=== PATIENT | male | born 1985 | race American Indian/Alaskan Native ===

== ENCOUNTER 2017-12-07 21:55 | Emergency (ER) | payer MEDICARE ==
[2017-12-07] MEDS ORDERED: ASPIRIN PO ONE (22:19)
[2017-12-07 22:53] LABS: Basophils # (Auto) 0.1 K/mm3 (0.0-0.1); Basophils % (Auto) 0.7 % (0.0-1.8); Eosinophils # (Auto) 0.1 K/mm3 (0.0-0.4); Eosinophils % (Auto) 1.1 % (0.0-4.3); Hematocrit 47.6 % (35.5-45.6); Hemoglobin 15.3 gm/dl (11.8-15.2); Lymphocytes # (Auto) 3.9 K/mm3 (1.2-5.4); Lymphocytes % (Auto) 40.5 % (13.4-35.0); Mean Corpuscular HGB Conc 32 % (32-34); Mean Corpuscular Hemoglobin 26 pg (28-32); Mean Corpuscular Volume 80 fl (84-94); Monocytes # (Auto) 0.6 K/mm3 (0.0-0.8); Monocytes % (Auto) 6.7 % (0.0-7.3); Platelet Count 325 K/mm3 (140-440); Red Blood Count 5.92 M/mm3 (3.65-5.03); Red Cell Distribution Width 13.8 % (13.2-15.2)
[2017-12-07 23:07] LABS: BUN/Creatinine Ratio 11; Blood Urea Nitrogen 10 mg/dL (9-20); Calcium 8.5 mg/dL (8.4-10.2); Hemolysis Index 15
--- NOTE | 2017-12-07 23:08 | XRay Report ---
FINAL REPORT PROCEDURE: XR CHEST ROUTINE 2V TECHNIQUE: PA and lateral chest radiographs were obtained. CPT 41153 HISTORY: CP/SOB COMPARISON: No prior studies are available for comparison. FINDINGS: Heart: Normal. Mediastinum/Vessels: Normal. Lungs/Pleural space: Normal. Bony thorax: No acute osseous abnormality. Other: IMPRESSION: Normal examination.
--- NOTE | 2017-12-08 05:43 | Emergency Department Report ---
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 Patient has hypertension, which is controlled with diet, but no past history of coronary artery disease, but he does report that he has been significantly active at work, although not in repetitive activities, but he also reports significant stress at same time. He has not had any discomfort at time of examination. -: Gradual Onset: during rest Pain Location: left chest, right chest, other (base of neck, occasionally in left arm) Pain Radiation: none Severity: moderate Severity scale (0 -10): 4 Quality: aching, sharp Consistency: intermittent, now resolved Improves With: nothing Worsens With: movement Context: other (recent allergy and pollen symptoms, nasal congestion, sore throat) re: denies: nausea, vomting, dyspnea Other Symptoms: cough. denies: syncope, leg swelling, palpitations Treatments Prior to Arrival: none Aspirin use within the Past 7 Days: (0) No - Related Data On Oral Contraceptives: No Previous Rx's Medication Instructions Recorded Last Taken Type Azithromycin [Zithromax Z-DAYSI] 500 mg PO ONCE #6 tablet 05/18/13 Unknown Rx Lisinopril/Hydrochlorothiazide 1 each PO DAILY #30 tablet 05/18/13 Unknown Rx [Zestoretic 10-12.5 mg] Prednisone 20 mg PO QDAY #10 tablet 05/18/13 Unknown Rx ALBUTEROL Inhaler [ProAir HFA 2 puff IH QID PRN #1 unit 07/06/13 Unknown Rx Inhaler] Azithromycin [Zithromax] 500 mg PO QDAY #5 tablet 07/06/13 Unknown Rx Hycodan Susp 5 ml PO Q4H PRN #120 ml 07/06/13 Unknown Rx Docusate Sodium [Colace] 100 mg PO BID #60 capsule 08/25/14 Unknown Rx Starch 51%(Nf) [Anusol] 1 each [place] TID #30 supp.rect 08/25/14 Unknown Rx Ibuprofen [Motrin 600 MG tab] 600 mg PO Q8H PRN #40 tablet 03/21/15 Unknown Rx Penicillin Vk [Veetids TAB] 500 mg PO QID #40 tablet 03/21/15 Unknown Rx Acetaminophen/Codeine [Tylenol 1 tab PO Q6H PRN #20 tab 06/11/15 Unknown Rx /Codeine # 3 tab] Allergies Allergy/AdvReac Type Severity Reaction Status Date / Time No Known Allergies Allergy Verified 03/20/15 23:53 Heart Score - HEART Score History: Slightly suspicious EKG: Non-specific Age: < 45 Risk factors: 1-2 risk factors Troponin: < normal limit HEART Score: 2 ED Review of Systems ROS: Stated complaint: CHEST PAIN Other details as noted in HPI Constitutional: denies: chills, fever Eyes: denies: eye pain, eye discharge, vision change ENT: denies: ear pain, throat pain Respiratory: see HPI, cough. denies: shortness of breath, SOB with exertion, wheezing Cardiovascular: as per HPI, chest pain. denies: palpitations, edema, syncope, paroxysmal nocturnal dyspnea Endocrine: no symptoms reported Gastrointestinal: denies: abdominal pain, nausea, diarrhea Genitourinary: denies: urgency, dysuria Musculoskeletal: denies: back pain, joint swelling, arthralgia Skin: denies: rash, lesions Neurological: denies: headache, weakness, paresthesias Psychiatric: denies: anxiety, depression Hematological/Lymphatic: denies: easy bleeding, easy bruising ED Past Medical Hx - Past Medical History Previous Medical History?: Yes Hx Hypertension: Yes (not on meds) Hx CVA: No Hx Heart Attack/AMI: No Hx Congestive Heart Failure: No Additional medical history: SLEEP APNEA- CPAP - Surgical History Past Surgical History?: No - Social History Smoking Status: Current Every Day Smoker Substance Use Type: None - Medications Home Medications: Home Medications Medication Instructions Recorded Confirmed Last Taken Type Azithromycin [Zithromax Z-DAYSI] 500 mg PO ONCE #6 tablet 05/18/13 Unknown Rx Lisinopril/Hydrochlorothiazide 1 each PO DAILY #30 tablet 05/18/13 Unknown Rx [Zestoretic 10-12.5 mg] Prednisone 20 mg PO QDAY #10 tablet 05/18/13 Unknown Rx ALBUTEROL Inhaler [ProAir HFA 2 puff IH QID PRN #1 unit 07/06/13 Unknown Rx Inhaler] Azithromycin [Zithromax] 500 mg PO QDAY #5 tablet 07/06/13 Unknown Rx Hycodan Susp 5 ml PO Q4H PRN #120 ml 07/06/13 Unknown Rx Docusate Sodium [Colace] 100 mg PO BID #60 capsule 08/25/14 Unknown Rx Starch 51%(Nf) [Anusol] 1 each [place] TID #30 supp.rect 08/25/14 Unknown Rx Ibuprofen [Motrin 600 MG tab] 600 mg PO Q8H PRN #40 tablet 03/21/15 Unknown Rx Penicillin Vk [Veetids TAB] 500 mg PO QID #40 tablet 03/21/15 Unknown Rx Acetaminophen/Codeine [Tylenol 1 tab PO Q6H PRN #20 tab 06/11/15 Unknown Rx /Codeine # 3 tab] ED Physical Exam - General Limitations: No Limitations General appearance: alert, in no apparent distress - Head Head exam: Present: atraumatic, normocephalic - Eye Eye exam: Present: normal appearance - ENT ENT exam: Present: mucous membranes moist - Neck Neck exam: Present: normal inspection - Respiratory Respiratory exam: Present: normal lung sounds bilaterally, chest wall tenderness. Absent: respiratory distress, wheezes, rales, rhonchi, accessory muscle use - Cardiovascular Cardiovascular Exam: Present: regular rate, normal rhythm, normal heart sounds. Absent: systolic murmur, diastolic murmur, rubs, gallop - GI/Abdominal GI/Abdominal exam: Present: soft, normal bowel sounds - Rectal Rectal exam: Present: deferred - Extremities Exam Extremities exam: Present: normal inspection - Back Exam Back exam: Present: normal inspection - Neurological Exam Neurological exam: Present: alert, oriented X3 - Psychiatric Psychiatric exam: Present: normal affect, normal mood - Skin Skin exam: Present: warm, dry, intact, normal color. Absent: rash ED Course Vital Signs 12/07/17 12/08/17 12/08/17 22:11 00:08 00:14 Temperature 99.0 F 98.1 F Pulse Rate 64 62 57 L Respiratory 18 18 15 Rate Blood Pressure 142/81 148/81 Blood Pressure 148/81 [Left] O2 Sat by Pulse 99 100 100 Oximetry 12/08/17 12/08/17 12/08/17 01:00 02:00 03:00 Temperature Pulse Rate 57 L 54 L 50 L Respiratory 15 23 12 Rate Blood Pressure 136/82 121/77 129/79 Blood Pressure [Left] O2 Sat by Pulse 99 98 99 Oximetry 12/08/17 05:55 Temperature Pulse Rate 61 Respiratory 14 Rate Blood Pressure Blood Pressure 118/76 [Left] O2 Sat by Pulse 100 Oximetry - Reevaluation(s) Reevaluation #1: 12/08/17 05:52 Blood pressure stable at initial examination, at 121/72, heart rate is 80 and stable. ERIK score - Erik Score Age > 65: (0) No Aspirin use within the Past 7 Days: (0) No 3 or more CAD Risk Factors: (0) No 2 or more Angina events in past 24 hrs: (0) No Known CAD with more than 50% Stenosis: (0) No Elevated Cardiac Markers: (0) No ST Deviation Greater than 0.5mm: (0) No ERIK Score: 0 ED Medical Decision Making - Lab Data Result diagrams: 12/07/17 22:22 12/07/17 22:22 - EKG Data -: EKG Interpreted by Nm EKG shows normal: sinus rhythm, ST-T waves (nonspecific anterior septal ST abnormalities, less than 1 mm) Rate: bradycardia - EKG Data When compared to previous EKG there are: previous EKG unavailable - Radiology Data Radiology results: report reviewed Normal chest x-ray - Medical Decision Making Patient is clinically stable, has symptoms more suggestive of noncardiac and musculoskeletal discomfort, rather than a coronary etiology. He is in stable in the emergency department, is comfortable at time of examination, vital signs are stable, laboratory evaluation is negative, and EKG is unremarkable. Patient is clinically stable for discharge, reassured that findings were not significantly worrisome for acute coronary disease. - Differential Diagnosis chest wall pain, chronic muscle tension, costochondritis, acute coronary sy Critical Care Time: No Critical care attestation.: If time is entered above; I have spent that time in minutes in the direct care of this critically ill patient, excluding procedure time. ED Disposition Clinical Impression: Acute chest wall pain Disposition: - TO HOME OR SELFCARE Is pt being admited?: No Does the pt Need Aspirin: No Condition: Good Instructions: Costochondritis (ED) Additional Instructions: Warm heating pad will help relieve muscles, and you may use gentle stretching exercises to return your muscles to become more limber. Referrals: FRANCINE TAMAYO MD [Primary Care Provider] - 3-5 Days Forms: Accompanied Note, Work/School Release Form(ED) Time of Disposition: 05:45
[2017-12-08 05:56] VITALS: BP 118/76
== END 2017-12-08 05:56 | disposition home or self-care (01) ==
LOC: ED 21:55
DX: R07.89 Other chest pain (principal); R05 Cough; I10 Essential (primary) hypertension; F17.200 Nicotine dependence, unspecified, uncomplicated
CPT/HCPCS: 36415; 71046; 80048; 84484; 85025; 93005; 93010; 99284

== ENCOUNTER 2018-05-19 12:13 | Emergency (ER) | payer SELFPAY ==
[2018-05-19 12:31] VITALS: BP 158/103
[2018-05-19] MEDS ORDERED: NACL 0.9% 1000 ML 1,000 ML IV ONE (12:42)
[2018-05-19] MEDS ORDERED: TORADOL IV ONE (12:42)
--- NOTE | 2018-05-19 12:50 | Emergency Department Report ---
ED Abdominal Pain HPI - General Chief Complaint: Abdominal Pain Stated Complaint: ABD PAIN/FACE TWITCHING Time Seen by Provider: 05/19/18 12:38 Source: patient Mode of arrival: Ambulatory Limitations: No Limitations - History of Present Illness Initial Comments: This is a 32-year-old male nontoxic, well nourished in appearance, no acute signs of distress presents to the ED with c/o of intermittent right lower abdominal x2 weeks. Patient stated it is worse during a bowel movement and also causes him to have an "aching" sensation in his right testicular area. Patient stated the testiular aching only occurs during a bowel movement. Patient otherwise currently in the ER denies any testicular pain or swelling. Denies any penile ulcers or lesions or discharge. Patient denies any nausea or vomiting. Patient describes abdominal pain as cramping and aching with level of 3/10. Patient denies chest pain, short of breath, fever, chills, headache, stiff neck, numbness or tingling. Patient denies any diarrhea. Patient stated that he has constipation issues. Patient denies any recent travels. Patient denies any allergies or significant past medical history. MD Complaint: abdominal pain -: week(s) (2) Location: RLQ Radiation: none Migration to: no migration Severity: mild Severity scale (0 -10): 3 Quality: cramping Consistency: intermittent Improves With: nothing Worsens With: bowel movement Associated Symptoms: constipation. denies: nausea, vomiting, diarrhea, fever, chills, dysuria, hematemesis, hematochezia, melena, hematuria, anorexia, syncope - Related Data Previous Rx's Medication Instructions Recorded Last Taken Type Azithromycin [Zithromax Z-DAYSI] 500 mg PO ONCE #6 tablet 05/18/13 Unknown Rx Lisinopril/Hydrochlorothiazide 1 each PO DAILY #30 tablet 05/18/13 Unknown Rx [Zestoretic 10-12.5 mg] Prednisone 20 mg PO QDAY #10 tablet 05/18/13 Unknown Rx ALBUTEROL Inhaler (OR & NICU) 2 puff IH QID PRN #1 unit 07/06/13 Unknown Rx [ProAir HFA Inhaler] Azithromycin [Zithromax] 500 mg PO QDAY #5 tablet 07/06/13 Unknown Rx Hycodan Susp 5 ml PO Q4H PRN #120 ml 07/06/13 Unknown Rx Docusate Sodium [Colace] 100 mg PO BID #60 capsule 08/25/14 Unknown Rx Starch 51%(Nf) [Anusol] 1 each [place] TID #30 supp.rect 08/25/14 Unknown Rx Ibuprofen [Motrin 600 MG tab] 600 mg PO Q8H PRN #40 tablet 03/21/15 Unknown Rx Penicillin Vk [Veetids TAB] 500 mg PO QID #40 tablet 03/21/15 Unknown Rx Acetaminophen/Codeine [Tylenol 1 tab PO Q6H PRN #20 tab 06/11/15 Unknown Rx /Codeine # 3 tab] Ibuprofen [Motrin] 600 mg PO Q8H PRN #12 tablet 05/19/18 Unknown Rx Allergies Allergy/AdvReac Type Severity Reaction Status Date / Time No Known Allergies Allergy Verified 03/20/15 23:53 ED Review of Systems ROS: Stated complaint: ABD PAIN/FACE TWITCHING Other details as noted in HPI Constitutional: denies: chills, fever Eyes: denies: eye pain, eye discharge, vision change ENT: denies: ear pain, throat pain Respiratory: denies: cough, shortness of breath, wheezing Cardiovascular: denies: chest pain, palpitations Endocrine: no symptoms reported Gastrointestinal: abdominal pain. denies: nausea, diarrhea Genitourinary: denies: urgency, dysuria Musculoskeletal: denies: back pain, joint swelling, arthralgia Skin: denies: rash, lesions Neurological: denies: headache, weakness, paresthesias Psychiatric: denies: anxiety, depression Hematological/Lymphatic: denies: easy bleeding, easy bruising ED Past Medical Hx - Past Medical History Hx Hypertension: No (not on meds) Hx CVA: No Hx Heart Attack/AMI: No Hx Congestive Heart Failure: No Additional medical history: SLEEP APNEA- CPAP - Surgical History Past Surgical History?: No - Social History Smoking Status: Current Every Day Smoker Substance Use Type: None - Medications Home Medications: Home Medications Medication Instructions Recorded Confirmed Last Taken Type Azithromycin [Zithromax Z-DAYSI] 500 mg PO ONCE #6 tablet 05/18/13 Unknown Rx Lisinopril/Hydrochlorothiazide 1 each PO DAILY #30 tablet 05/18/13 Unknown Rx [Zestoretic 10-12.5 mg] Prednisone 20 mg PO QDAY #10 tablet 05/18/13 Unknown Rx ALBUTEROL Inhaler (OR & NICU) 2 puff IH QID PRN #1 unit 07/06/13 Unknown Rx [ProAir HFA Inhaler] Azithromycin [Zithromax] 500 mg PO QDAY #5 tablet 07/06/13 Unknown Rx Hycodan Susp 5 ml PO Q4H PRN #120 ml 07/06/13 Unknown Rx Docusate Sodium [Colace] 100 mg PO BID #60 capsule 08/25/14 Unknown Rx Starch 51%(Nf) [Anusol] 1 each [place] TID #30 supp.rect 08/25/14 Unknown Rx Ibuprofen [Motrin 600 MG tab] 600 mg PO Q8H PRN #40 tablet 03/21/15 Unknown Rx Penicillin Vk [Veetids TAB] 500 mg PO QID #40 tablet 03/21/15 Unknown Rx Acetaminophen/Codeine [Tylenol 1 tab PO Q6H PRN #20 tab 06/11/15 Unknown Rx /Codeine # 3 tab] Ibuprofen [Motrin] 600 mg PO Q8H PRN #12 tablet 05/19/18 Unknown Rx ED Physical Exam - General Limitations: No Limitations General appearance: alert, in no apparent distress - Head Head exam: Present: atraumatic, normocephalic - Eye Eye exam: Present: normal appearance Pupils: Present: normal accommodation - ENT ENT exam: Present: normal exam, mucous membranes moist - Neck Neck exam: Present: normal inspection, full ROM - Respiratory Respiratory exam: Present: normal lung sounds bilaterally. Absent: respiratory distress, wheezes, rales, rhonchi, stridor, chest wall tenderness, accessory muscle use, decreased breath sounds, prolonged expiratory - Cardiovascular Cardiovascular Exam: Present: regular rate, normal rhythm, normal heart sounds. Absent: bradycardia, tachycardia, irregular rhythm, systolic murmur, diastolic murmur, rubs, gallop - GI/Abdominal GI/Abdominal exam: Present: soft, tenderness (RLQ), normal bowel sounds. Absent : distended, guarding, rebound, rigid, diminished bowel sounds, hyperactive bowel sounds, hypoactive bowel sounds, mass, bruit - Expanded GI/Abdominal Exam Expanded GI/Abdominal exam: Absent: psoas sign, Lechuga's sign, Rovsing's sign, tenderness at Mcburney's Point, ascites - Rectal Rectal exam: Present: deferred - exam: Present: normal inspection. Absent: testicular tenderness, urethral discharge, scrotal swelling, vertical testicular lie, circumcision - Extremities Exam Extremities exam: Present: normal inspection, full ROM, normal capillary refill. Absent: tenderness - Back Exam Back exam: Present: normal inspection, full ROM - Neurological Exam Neurological exam: Present: alert, oriented X3, normal gait - Psychiatric Psychiatric exam: Present: normal affect, normal mood - Skin Skin exam: Present: warm, dry, intact, normal color. Absent: rash ED Course Vital Signs 05/19/18 12:27 Temperature 98.6 F Pulse Rate 68 Respiratory 16 Rate Blood Pressure 158/103 O2 Sat by Pulse 100 Oximetry - Reevaluation(s) Reevaluation #1: 05/19/18 12:59 Patient is speaking in full sentences with no signs of distress noted. ED Medical Decision Making - Lab Data Result diagrams: 05/19/18 12:44 05/19/18 12:44 - Medical Decision Making This is a 32-year-old male that presents with abdominal pain. Patient is stable and was examined by me. There is slight abdominal tenderness to RLQ. Negative signs of symptoms of appendicitis. Labs obtained. UA obtained. CT with contrast of abdomen obtained and dictated by the radiologist. Patient is notified of the report with no questions noted by the patient. Vital signs are stable prior to discharge. Patient received 1L normal saline and Toradol in the ED which patient stated symptoms has resolved and subsided. no n/v noted. Patient was also instructed to Follow-up with a primary care doctor in 3-5 days or if symptoms worsen and continue return to emergency room as soon as possible. At time of discharge, the patient does not seem toxic or ill in appearance. No acute signs of distress noted. Patient agrees to discharge treatment plan of care. No further questions noted by the patient. Critical care attestation.: If time is entered above; I have spent that time in minutes in the direct care of this critically ill patient, excluding procedure time. ED Disposition Clinical Impression: Abdominal pain Qualifiers: Abdominal location: right lower quadrant Qualified Code(s): R10.31 - Right lower quadrant pain Disposition: DC-01 TO HOME OR SELFCARE Is pt being admited?: No Does the pt Need Aspirin: No Condition: Stable Instructions: Acute Abdominal Pain (ED) Additional Instructions: Follow-up with a primary care/merchandiser doctor in 3-5 days or if symptoms worsen and continue return to emergency room as soon as possible. Prescriptions: Ibuprofen [Motrin] 600 mg PO Q8H PRN #12 tablet PRN Reason: Pain Referrals: PRIMARY CAREMD [Primary Care Provider] - 3-5 Days PARISH TYLER MD [Staff Physician] - 3-5 Days [facility] [Provider Group] - 3-5 Days [facility] [Outside] - 3-5 Days Forms: Work/School Release Form(ED)
[2018-05-19 13:05] LABS: Basophils # (Auto) 0.1 K/mm3 (0.0-0.1); Basophils % (Auto) 1.2 % (0.0-1.8); Eosinophils # (Auto) 0.1 K/mm3 (0.0-0.4); Eosinophils % (Auto) 1.2 % (0.0-4.3); Hemoglobin 15.7 gm/dl (11.8-15.2); Lymphocytes # (Auto) 2.6 K/mm3 (1.2-5.4); Lymphocytes % (Auto) 28.7 % (13.4-35.0); Mean Corpuscular HGB Conc 32 % (32-34); Mean Corpuscular Hemoglobin 26 pg (28-32); Mean Corpuscular Volume 81 fl (84-94); Monocytes # (Auto) 0.7 K/mm3 (0.0-0.8); Monocytes % (Auto) 8.1 % (0.0-7.3); Platelet Count 329 K/mm3 (140-440); Red Blood Count 6.03 M/mm3 (3.65-5.03); Red Cell Distribution Width 14.3 % (13.2-15.2)
[2018-05-19 13:17] LABS: Alanine Aminotransferase 13 units/L (7-56); Albumin 4.5 g/dL (3.9-5); BUN/Creatinine Ratio 9; Blood Urea Nitrogen 9 mg/dL (9-20); Calcium 9.2 mg/dL (8.4-10.2); Hemolysis Index 36; Lipase 30 units/L (13-60)
[2018-05-19 14:13] LABS: Bilirubin,Urine NEG (Negative); Blood,Urine NEG (Negative); Color,Urine Yellow (Yellow); Mucus,Urine FEW /HPF; Protein,Urine <15 mg/dL mg/dL (Negative); Urobilinogen,Urine < 2.0 mg/dL (<2.0)
--- NOTE | 2018-05-19 14:27 | Cat Scan Report ---
FINAL REPORT EXAM: CT ABDOMEN PELVIS W CON HISTORY: abd pain TECHNIQUE: CT abdomen and pelvis performed. Images extend from diaphragm to pubic symphysis. 100 cc Omnipaque 300 IV was administered. No oral contrast was administered. Coronal and sagittal reformatted images were obtained. PRIORS: None. FINDINGS: The visualized aspects of the lung bases are clear. The visualized liver, spleen, pancreas, adrenal glands and kidneys demonstrate no significant abnormalities. There is no abdominal aortic aneurysm. There is no evidence of intestinal obstruction. The appendix is normal. There are no abnormal fluid collections seen. There is no free intraperitoneal air. The bladder is unremarkable. There is no abnormal pelvic mass or fluid collections seen. IMPRESSION: There is no acute abnormality identified.
[2018-05-19 14:29] LABS: WBC,Urine < 1.0 /HPF (0.0-6.0)
== END 2018-05-19 15:00 | disposition home or self-care (01) ==
LOC: ED 12:13
DX: R10.31 Right lower quadrant pain (principal); K59.00 Constipation, unspecified
CPT/HCPCS: 36415; 74177; 80053; 81001; 83690; 85025; 96374; 99284; J1885; J7030; Q9967

== ENCOUNTER 2018-06-12 20:28 | Emergency (ER) | payer SELFPAY ==
[2018-06-12] MEDS ORDERED: ASPIRIN PO ONE (21:30)
[2018-06-12 22:17] LABS: Basophils # (Auto) 0.1 K/mm3 (0.0-0.1); Basophils % (Auto) 0.8 % (0.0-1.8); Eosinophils # (Auto) 0.1 K/mm3 (0.0-0.4); Eosinophils % (Auto) 0.9 % (0.0-4.3); Hematocrit 47.3 % (35.5-45.6); Hemoglobin 15.7 gm/dl (11.8-15.2); Lymphocytes # (Auto) 2.9 K/mm3 (1.2-5.4); Lymphocytes % (Auto) 27.1 % (13.4-35.0); Mean Corpuscular HGB Conc 33 % (32-34); Mean Corpuscular Hemoglobin 27 pg (28-32); Mean Corpuscular Volume 81 fl (84-94); Monocytes # (Auto) 0.7 K/mm3 (0.0-0.8); Monocytes % (Auto) 6.4 % (0.0-7.3); Platelet Count 362 K/mm3 (140-440); Red Blood Count 5.83 M/mm3 (3.65-5.03); Red Cell Distribution Width 14.2 % (13.2-15.2)
[2018-06-12 22:40] LABS: BUN/Creatinine Ratio 9; Blood Urea Nitrogen 8 mg/dL (9-20); Calcium 9.5 mg/dL (8.4-10.2); Hemolysis Index 8
--- NOTE | 2018-06-13 01:45 | Emergency Department Report ---
ED Chest Pain HPI - General Chief Complaint: Chest Pain Stated Complaint: CP Time Seen by Provider: 06/13/18 01:44 Source: patient Mode of arrival: Ambulatory Limitations: No Limitations - History of Present Illness Initial Comments: Patient complains of chest pain intermittently. MD Complaint: chest pain -: Sudden Onset: during rest Pain Location: substernal Pain Radiation: none Severity: mild Severity scale (0 -10): 2 Quality: aching Consistency: intermittent Improves With: nothing Worsens With: nothing Treatments Prior to Arrival: none Aspirin use within the Past 7 Days: (0) No - Related Data Previous Rx's Medication Instructions Recorded Last Taken Type Azithromycin [Zithromax Z-DAYSI] 500 mg PO ONCE #6 tablet 05/18/13 Unknown Rx Lisinopril/Hydrochlorothiazide 1 each PO DAILY #30 tablet 05/18/13 Unknown Rx [Zestoretic 10-12.5 mg] Prednisone 20 mg PO QDAY #10 tablet 05/18/13 Unknown Rx ALBUTEROL Inhaler (OR & NICU) 2 puff IH QID PRN #1 unit 07/06/13 Unknown Rx [ProAir HFA Inhaler] Azithromycin [Zithromax] 500 mg PO QDAY #5 tablet 07/06/13 Unknown Rx Hycodan Susp 5 ml PO Q4H PRN #120 ml 07/06/13 Unknown Rx Docusate Sodium [Colace] 100 mg PO BID #60 capsule 08/25/14 Unknown Rx Starch 51%(Nf) [Anusol] 1 each NV TID #30 supp.rect 08/25/14 Unknown Rx Ibuprofen [Motrin 600 MG tab] 600 mg PO Q8H PRN #40 tablet 03/21/15 Unknown Rx Penicillin Vk [Veetids TAB] 500 mg PO QID #40 tablet 03/21/15 Unknown Rx Acetaminophen/Codeine [Tylenol 1 tab PO Q6H PRN #20 tab 06/11/15 Unknown Rx /Codeine # 3 tab] Ibuprofen [Motrin] 600 mg PO Q8H PRN #12 tablet 05/19/18 Unknown Rx Ibuprofen 800 mg PO TID PRN #20 tablet 06/13/18 Unknown Rx Allergies Allergy/AdvReac Type Severity Reaction Status Date / Time No Known Allergies Allergy Verified 03/20/15 23:53 Heart Score - HEART Score History: Slightly suspicious EKG: Normal Age: < 45 Risk factors: No known risk factors Troponin: < normal limit HEART Score: 0 - Critical Actions Critical Actions: 0-3 pts:0.9-1.7%risk of adverse cardiac event.Candidate for discharge ED Review of Systems ROS: Stated complaint: CP Other details as noted in HPI Comment: All other systems reviewed and negative Constitutional: denies: chills, fever Eyes: denies: eye pain, eye discharge, vision change ENT: denies: ear pain, throat pain Respiratory: denies: cough, shortness of breath, wheezing Cardiovascular: chest pain. denies: palpitations Endocrine: no symptoms reported Gastrointestinal: denies: abdominal pain, nausea, diarrhea Genitourinary: denies: urgency, dysuria Musculoskeletal: denies: back pain, joint swelling, arthralgia Skin: denies: rash, lesions Neurological: denies: headache, weakness, paresthesias Psychiatric: denies: anxiety, depression Hematological/Lymphatic: denies: easy bleeding, easy bruising ED Past Medical Hx - Past Medical History Previous Medical History?: Yes Hx Hypertension: No (not on meds) Hx CVA: No Hx Heart Attack/AMI: No Hx Congestive Heart Failure: No Additional medical history: SLEEP [id number], "it got ruined" - Surgical History Past Surgical History?: No - Social History Smoking Status: Current Every Day Smoker Substance Use Type: None - Medications Home Medications: Home Medications Medication Instructions Recorded Confirmed Last Taken Type Azithromycin [Zithromax Z-DAYSI] 500 mg PO ONCE #6 tablet 05/18/13 Unknown Rx Lisinopril/Hydrochlorothiazide 1 each PO DAILY #30 tablet 05/18/13 Unknown Rx [Zestoretic 10-12.5 mg] Prednisone 20 mg PO QDAY #10 tablet 05/18/13 Unknown Rx ALBUTEROL Inhaler (OR & NICU) 2 puff IH QID PRN #1 unit 07/06/13 Unknown Rx [ProAir HFA Inhaler] Azithromycin [Zithromax] 500 mg PO QDAY #5 tablet 07/06/13 Unknown Rx Hycodan Susp 5 ml PO Q4H PRN #120 ml 07/06/13 Unknown Rx Docusate Sodium [Colace] 100 mg PO BID #60 capsule 08/25/14 Unknown Rx Starch 51%(Nf) [Anusol] 1 each NV TID #30 supp.rect 08/25/14 Unknown Rx Ibuprofen [Motrin 600 MG tab] 600 mg PO Q8H PRN #40 tablet 03/21/15 Unknown Rx Penicillin Vk [Veetids TAB] 500 mg PO QID #40 tablet 03/21/15 Unknown Rx Acetaminophen/Codeine [Tylenol 1 tab PO Q6H PRN #20 tab 06/11/15 Unknown Rx /Codeine # 3 tab] Ibuprofen [Motrin] 600 mg PO Q8H PRN #12 tablet 05/19/18 Unknown Rx Ibuprofen 800 mg PO TID PRN #20 tablet 06/13/18 Unknown Rx ED Physical Exam - General Limitations: No Limitations General appearance: alert, in no apparent distress - Head Head exam: Present: atraumatic, normocephalic - Eye Eye exam: Present: normal appearance - ENT ENT exam: Present: mucous membranes moist - Neck Neck exam: Present: normal inspection - Respiratory Respiratory exam: Present: normal lung sounds bilaterally. Absent: respiratory distress - Cardiovascular Cardiovascular Exam: Present: regular rate, normal rhythm, other (anterior chest wall tenderness to palpation.). Absent: systolic murmur, diastolic murmur , rubs, gallop - GI/Abdominal GI/Abdominal exam: Present: soft, normal bowel sounds - Rectal Rectal exam: Present: deferred - Extremities Exam Extremities exam: Present: normal inspection - Back Exam Back exam: Present: normal inspection - Neurological Exam Neurological exam: Present: alert, oriented X3 - Psychiatric Psychiatric exam: Present: normal affect, normal mood - Skin Skin exam: Present: warm, dry, intact, normal color. Absent: rash ED Course Vital Signs 06/12/18 06/12/18 06/13/18 20:48 21:21 01:14 Temperature 99.3 F 99.3 F 98.5 F Pulse Rate 78 77 52 L Respiratory 18 18 20 Rate Blood Pressure 145/82 145/82 129/81 O2 Sat by Pulse 99 99 97 Oximetry 06/13/18 06/13/18 06/13/18 02:09 02:31 03:00 Temperature Pulse Rate 119 H 46 L 60 Respiratory 21 14 Rate Blood Pressure 121/57 121/57 O2 Sat by Pulse 96 99 Oximetry ERIK score - Erik Score Age > 65: (0) No Aspirin use within the Past 7 Days: (0) No 3 or more CAD Risk Factors: (0) No 2 or more Angina events in past 24 hrs: (0) No Known CAD with more than 50% Stenosis: (0) No Elevated Cardiac Markers: (0) No ST Deviation Greater than 0.5mm: (0) No ERIK Score: 0 ED Medical Decision Making - Lab Data Result diagrams: 06/12/18 21:41 06/12/18 21:41 - EKG Data -: EKG Interpreted by Me EKG shows normal: sinus rhythm Rate: normal (63) - EKG Data When compared to previous EKG there are: previous EKG unavailable Interpretation: normal EKG 06/13/18 02:21 No STEMI. - Radiology Data Radiology results: report reviewed, image reviewed Chest x-rays negative. - Medical Decision Making Atypical chest pain. Critical care attestation.: If time is entered above; I have spent that time in minutes in the direct care of this critically ill patient, excluding procedure time. ED Disposition Clinical Impression: Atypical chest pain, Acute costochondritis Disposition: TO HOME OR SELFCARE Is pt being admited?: No Does the pt Need Aspirin: No Condition: Stable Instructions: Chest Pain (ED), Costochondritis (ED) Additional Instructions: Please follow up with her primary doctor or Dr Adrian tomorrow morning. Return to the emergency room if your condition worsens. Prescriptions: Ibuprofen 800 mg PO TID PRN #20 tablet PRN Reason: Pain, Moderate (4-6) Referrals: PRIMARY CARE, [Primary Care Provider] - 3-5 Days Time of Disposition: 03:39
[2018-06-13] MEDS ORDERED: NACL 0.9% 1000 ML 1,000 ML IV ONE (02:14)
--- NOTE | 2018-06-13 02:53 | XRay Report ---
FINAL REPORT EXAM: XR CHEST 1V AP HISTORY: Chest pain TECHNIQUE: A portable view of the chest was obtained and compared to the study of 12/07/2017. FINDINGS: The heart size and vascularity appear normal. The lungs are clear. Pleural fluid is not seen. The bones and soft tissues appear normal. IMPRESSION: Normal chest
[2018-06-13 04:01] VITALS: BP 153/93
== END 2018-06-13 04:02 | disposition home or self-care (01) ==
LOC: ED 20:28
DX: R07.89 Other chest pain (principal); M94.0 Chondrocostal junction syndrome [Tietze]; F17.200 Nicotine dependence, unspecified, uncomplicated
CPT/HCPCS: 36415; 71045; 80048; 83880; 84484; 85025; 85379; 93005; 93010

== ENCOUNTER 2021-12-17 19:14 | Emergency (ER) | payer SELFPAY ==
--- NOTE | 2021-12-17 22:12 | Emergency Department Report ---
ED Neck Pain/Injury HPI - General Chief Complaint: Extremity Problem,Nontraumatic Stated Complaint: NECK/RT ARM PAIN Time Seen by Provider: 12/17/21 21:36 Mode of arrival: Ambulatory Limitations: No Limitations - History of Present Illness Initial Comments: 5-year-old male Aletha emerged department complaining of pain and stiffness to the right neck back and shoulder region of unknown etiology states that he woke up with the pain 1 morning after sleeping awkwardly on the side that has yet to resolve. No numbness or tingling, no fever, chills, sweats. No headache, no chest pain, no hemoptysis, no hematemesis, no hematochezia MD Complaint: neck pain -: Gradual Place: home Radiation: right lateral Severity: mild, moderate Quality: dull, aching Consistency: constant Improves With: none Worsens With: none Associated Symptoms: none. denies: numbness, tingling, vertigo, difficulty walking, swollen glands, nausea, vomiting - Related Data Previous Rx's Medication Instructions Recorded Last Taken Type Azithromycin [Zithromax Z-DAYSI] 500 mg PO ONCE #6 tablet 05/18/13 Unknown Rx Lisinopril/Hydrochlorothiazide 1 each PO DAILY #30 tablet 05/18/13 Unknown Rx [Zestoretic 10-12.5 mg] Prednisone 20 mg PO QDAY #10 tablet 05/18/13 Unknown Rx Albuterol Mdi (or & Nicu Only) 2 puff IH QID PRN #1 unit 07/06/13 Unknown Rx [ProAir HFA Inhaler] Azithromycin [Zithromax] 500 mg PO QDAY #5 tablet 07/06/13 Unknown Rx Hycodan Susp 5 ml PO Q4H PRN #120 ml 07/06/13 Unknown Rx Docusate Sodium [Colace] 100 mg PO BID #60 capsule 08/25/14 Unknown Rx Starch 51%(Nf) [Anusol] 1 each [place] TID #30 supp.rect 08/25/14 Unknown Rx Ibuprofen [Motrin 600 MG tab] 600 mg PO Q8H PRN #40 tablet 03/21/15 Unknown Rx Penicillin Vk [Veetids TAB] 500 mg PO QID #40 tablet 03/21/15 Unknown Rx Acetaminophen/Codeine [Tylenol 1 tab PO Q6H PRN #20 tab 06/11/15 Unknown Rx /Codeine # 3 tab] Ibuprofen [Motrin] 600 mg PO Q8H PRN #12 tablet 05/19/18 Unknown Rx Ibuprofen 800 mg PO TID PRN #20 tablet 06/13/18 Unknown Rx Ketorolac [Toradol] 10 mg PO Q6H PRN #15 tablet 12/17/21 Unknown Rx methOCARBAMOL [Robaxin TAB] 750 mg PO Q8H PRN #14 tablet 12/17/21 Unknown Rx Allergies Allergy/AdvReac Type Severity Reaction Status Date / Time No Known Allergies Allergy Verified 12/17/21 20:18 ED Review of Systems ROS: Stated complaint: NECK/RT ARM PAIN Other details as noted in HPI Comment: All other systems reviewed and negative ED Past Medical Hx - Past Medical History Previous Medical History?: Yes Hx Hypertension: (not on meds) Hx CVA: No Hx Heart Attack/AMI: No Hx Congestive Heart Failure: No Additional medical history: SLEEP [id number], "it got ruined" - Surgical History Past Surgical History?: No - Social History Smoking Status: Never Smoker Substance Use Type: None - Medications Home Medications: Home Medications Medication Instructions Recorded Confirmed Last Taken Type Azithromycin [Zithromax Z-DAYSI] 500 mg PO ONCE #6 tablet 05/18/13 Unknown Rx Lisinopril/Hydrochlorothiazide 1 each PO DAILY #30 tablet 05/18/13 Unknown Rx [Zestoretic 10-12.5 mg] Prednisone 20 mg PO QDAY #10 tablet 05/18/13 Unknown Rx Albuterol Mdi (or & Nicu Only) 2 puff IH QID PRN #1 unit 07/06/13 Unknown Rx [ProAir HFA Inhaler] Azithromycin [Zithromax] 500 mg PO QDAY #5 tablet 07/06/13 Unknown Rx Hycodan Susp 5 ml PO Q4H PRN #120 ml 07/06/13 Unknown Rx Docusate Sodium [Colace] 100 mg PO BID #60 capsule 08/25/14 Unknown Rx Starch 51%(Nf) [Anusol] 1 each FL TID #30 supp.rect 08/25/14 Unknown Rx Ibuprofen [Motrin 600 MG tab] 600 mg PO Q8H PRN #40 tablet 03/21/15 Unknown Rx Penicillin Vk [Veetids TAB] 500 mg PO QID #40 tablet 03/21/15 Unknown Rx Acetaminophen/Codeine [Tylenol 1 tab PO Q6H PRN #20 tab 06/11/15 Unknown Rx /Codeine # 3 tab] Ibuprofen [Motrin] 600 mg PO Q8H PRN #12 tablet 05/19/18 Unknown Rx Ibuprofen 800 mg PO TID PRN #20 tablet 06/13/18 Unknown Rx Ketorolac [Toradol] 10 mg PO Q6H PRN #15 tablet 12/17/21 Unknown Rx methOCARBAMOL [Robaxin TAB] 750 mg PO Q8H PRN #14 tablet 12/17/21 Unknown Rx ED Physical Exam - General Limitations: No Limitations General appearance: alert, in no apparent distress - Head Head exam: Present: atraumatic, normocephalic - Eye Eye exam: Present: normal appearance - ENT ENT exam: Present: mucous membranes moist - Neck Neck exam: Present: normal inspection, tenderness (Right trapezial region with palpation spasm is noted. Spurling's test is negative. Full range of motion is noted.). Absent: lymphadenopathy, thyromegaly - Respiratory Respiratory exam: Present: normal lung sounds bilaterally. Absent: respiratory distress, rales, rhonchi, accessory muscle use, decreased breath sounds - Cardiovascular Cardiovascular Exam: Present: regular rate, normal rhythm. Absent: systolic murmur, diastolic murmur, rubs, gallop - GI/Abdominal GI/Abdominal exam: Present: soft, normal bowel sounds - Rectal Rectal exam: Present: deferred - Extremities Exam Extremities exam: Present: normal inspection, full ROM, normal capillary refill - Back Exam Back exam: Present: normal inspection - Neurological Exam Neurological exam: Present: alert, oriented X3 - Psychiatric Psychiatric exam: Present: normal affect, normal mood - Skin Skin exam: Present: warm, dry, intact, normal color. Absent: rash ED Course Vital Signs 12/17/21 20:14 Temperature 98.2 F Pulse Rate 91 H Respiratory 20 Rate Blood Pressure 149/96 O2 Sat by Pulse 99 Oximetry ED Medical Decision Making - Radiology Data Radiology results: report reviewed [facility] [address] [place] [address] XRay Report Signed Patient: ADRIÁN NELSON MR#: [id number] : 1985 Acct:[id number] Age/Sex: 36 / M ADM Date: 12/17/21 Loc: ED Attending Dr: Ordering Physician: NINA QUACH Date of Service: 12/17/21 Procedure(s): XR chest routine 2V Accession Number(s): [id number] cc: NINA QUACH Fluoro Time In Minutes: CHEST 2 VIEWS INDICATION / CLINICAL INFORMATION: Right chest pain. COMPARISON: 06/13/2018 FINDINGS: SUPPORT DEVICES: None. HEART / MEDIASTINUM: No significant abnormality. LUNGS / PLEURA: No significant pulmonary or pleural abnormality. No pneumothorax. ADDITIONAL FINDINGS: No significant additional findings. IMPRESSION: 1. No acute findings. Signer Name: Arian Brady MD Signed: 12/17/2021 10:09 PM Workstation Name: [id number] Transcribed By: DB Dictated By: ARIAN BRADY MD Electronically Authenticated By: ARIAN BRADY MD Signed Date/Time: 12/17/212208 DD/ 07 TD/TT: Critical care attestation.: If time is entered above; I have spent that time in minutes in the direct care of this critically ill patient, excluding procedure time. ED Disposition Clinical Impression: Trapezius muscle spasm Disposition: 01 HOME / SELF CARE / HOMELESS Is pt being admited?: No Does the pt Need Aspirin: No Condition: Stable Instructions: Muscle Cramps and Spasms Prescriptions: methOCARBAMOL [Robaxin TAB] 750 mg PO Q8H PRN #14 tablet PRN Reason: Pain, Moderate (4-6) Ketorolac [Toradol] 10 mg PO Q6H PRN #15 tablet PRN Reason: Pain Referrals: [facility] [Provider Group] - 3-5 Days
[2021-12-17 23:09] VITALS: BP 147/92
== END 2021-12-17 23:09 | disposition home or self-care (01) ==
LOC: ED 19:14
DX: M62.838 Other muscle spasm (principal); M54.2 Cervicalgia; Z79.899 Other long term (current) drug therapy
CPT/HCPCS: 71046; 99283